=== PATIENT | male | born 1940 | race Two or more races ===

== ENCOUNTER → 2018-06-11 16:52 | Outpatient (CLI) | payer OTHER | END | disposition home or self-care (01) | LOC: RAD 16:52 | DX: R07.89 Other chest pain (principal) ==

== ENCOUNTER 2018-06-13 08:34 | Outpatient (CLI) | payer OTHER | END 2018-06-13 08:37 | disposition home or self-care (01) | LOC: SONOGRAMA 08:34 | DX: R10.84 Generalized abdominal pain (principal) ==

== ENCOUNTER 2019-06-06 07:52 | Outpatient (CLI) | payer OTHER | END 2019-06-06 08:01 | disposition home or self-care (01) | LOC: RAD 07:52 | DX: R16.0 Hepatomegaly, not elsewhere classified (principal); Z01.89 Encounter for other specified special examinations ==

== ENCOUNTER 2019-06-10 14:31 | Outpatient (CLI) | payer OTHER | END 2019-06-10 14:33 | disposition home or self-care (01) | LOC: TOM 14:31 | DX: C34.11 Malignant neoplasm of upper lobe, right bronchus or lung (principal) ==

== ENCOUNTER → 2020-07-09 | Outpatient (CLI) | payer OTHER | END | disposition home or self-care (01) | LOC: TOM 06:58 → MAMO-SONO 08:45 | PROVIDERS: ATTEND Internal Medicine Nephrology | DX: R91.1 Solitary pulmonary nodule (principal); F17.200 Nicotine dependence, unspecified, uncomplicated | CPT/HCPCS: 71270; 73030; 76700; Q9965 ==

== ENCOUNTER 2021-06-21 06:30 | Outpatient (CLI) | payer OTHER | END 2021-06-21 06:35 | disposition home or self-care (01) | LOC: SONOGRAMA 06:30 → MAMO-SONO 12:15 | PROVIDERS: ATTEND Internal Medicine Nephrology | DX: Q61.02 Congenital multiple renal cysts (principal); I10 Essential (primary) hypertension; K80.20 Calculus of gallbladder without cholecystitis without obstruction; K76.0 Fatty (change of) liver, not elsewhere classified; K80.80 Other cholelithiasis without obstruction ==

== ENCOUNTER 2022-05-22 06:34 | Outpatient (CLI) | payer OTHER | END 2022-05-22 07:20 | disposition home or self-care (01) | LOC: SONOGRAMA 06:34 | PROVIDERS: ATTEND Internal Medicine Nephrology | DX: K76.89 Other specified diseases of liver (principal); I10 Essential (primary) hypertension ==

== ENCOUNTER 2025-01-29 08:21 | Outpatient (CLI) | payer OTHER | END 2025-01-29 08:26 | disposition home or self-care (01) | LOC: SONOGRAMA 08:21 | PROVIDERS: ATTEND Internal Medicine Nephrology | DX: I11.9 Hypertensive heart disease without heart failure (principal); I12.9 Hypertensive chronic kidney disease with stage 1 through stage 4 chronic kidney disease, or unspecified chronic kidney disease; K76.0 Fatty (change of) liver, not elsewhere classified; R16.0 Hepatomegaly, not elsewhere classified ==